=== PATIENT | female | born 1995 | race Caucasian/White ===

== ENCOUNTER 2025-01-29 10:29 | Outpatient (CLI) | payer OTHER, SELFPAY ==
--- OUTSIDE RECORDS SUMMARY | 2025-01-29 10:53 | XMS_ITS | Clinical Summary ---
[facility] Address [address] [place] [id number] Care Team Providers Care Acds Block 1 Operator Name Role Phone No, Physician Primary Care Provider [phone] Allergies No known active allergies Medications hydrocortisone-pra moxine (PRAMCORT) 1-1 % rectal creamIndications:P ruritus Ani Insert into the rectum 4 (four) times a day 30 g 2 1 Active vit-iron fum-folic ac 27 mg iron- 0.8 mg tabletIndications: Vitamin Deficiency Prevention Take 1 tablet by mouth daily 30 tablet 11 1 Active norethindrone (MICRONOR) 0.35 mg tabletIndications: Contraception Take 1 tablet (0.35 mg total) by mouth daily 82 tablet 3 1 Active Active Problems Problem Noted Date Diagnosed Date Infection of perineal wound following delivery 0 01/15/2021 Normal course 01/07/2021 Overview (01/08/2021): PPD #1 01/07/21 Pt is doing well VSS, afebrile H/h 8.5/25.8 -- Pt is ambulating, tolerating general diet and pain controlled. Baby in the room with mom. Anticipate discharge tomorrow. 01/08/2021: Ambulating, voiding, tolerating regular diet, pain controlled well Baby blood type O negative - RhoGAM not indicated Stable for discharge Routine discharge precautions Prescriptions for ferrous sulfate and vitamins sent electronically Other hemorrhoids 01/07/2021 Overview (01/08/2021): Pramcort ordered today for hemorrhoids 01/08/2021: Patient continues to have discomfort. Offered to have an inpatient consult with General surgery, which the patient declines. She will continue to use medications as an outpatient and call us if her symptoms do not resolve to her satisfaction. Resolved Problems Problem Noted Date Diagnosed Date Resolved Date LGA (large for gestational a ge) fetus affecting management of mother, third trimester, not applicable or unspecified fetus 01/05/2021 01/08/2021 Overview (01/08/2021): 01/05/21 US (12/12): at 33w2d, EFW 2651g, 93%, AC 95% GCT 142, passed 3hr Delivery is planned for 36wks so size should not affect delivery planning Encounter for planned induction of labor 01/05/2021 01/08/2021 Overview (01/08/2021): at 36w5d presented for planned induction of labor due to worsening cholestasis SVE on admission 0/0/-3 S/p ANCS 01/02- Cervidil placed 01/04 at 2130 FHT reactive and reassuring 01/05/21, 2000 S/p cervidil x1, buccal cytotec 25mcg x2 SVE now 3/70/-2, head well applied Ctx on toco q2-4 min FHT reactive and reassuring Will proceed with induction of labor with pitocin 01/06/21 SROM with clear fluid at 5:30am Cvx 2-3/70/-3 at that time. Epidural in place FWB reassuring Continue Pitocin titration Cholestasis of in third trimester 01/04/2021 01/08/2021 Overview (01/08/2021): 01/05/21 BA (4/9) 11, diagnostic of cholestasis Rpt BA (5/5) 8 On ursodiol Worsening symptoms reported to Dr. 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 Dyspareunia in female 02/22/20202020 Immunizations Immunization Administration Dates Next Due MMR 01/08/2021(Deferred: Contraindic ation) Pfizer SARS-CoV-2 Monovalent Vaccination (12+ Yrs) PURPLE 03/10/2021,02/10/2021 Tdap 01/08/2021(Deferred: Other - received previously- 11/05/20),11/05/2020 Surgical History Surgery Date Site/Laterality Comments DIAGNOSTIC LAPAROSCOPY 04/16/2020 lap excision & ablation of endometriosis Medical History Medical History Date Comments Endometriosis 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 Dyspareunia in female 02/22/2020 Family History Medical History Relation Name Comments No Known Problems Father No Known Problems Mother Breast cancer Neg Hx Ovarian cancer Neg Hx Uterine cancer Neg Hx Relation Name Status Comments Father Alive Mother Alive Social History Tobacco Use Types Packs/Day Years Used Date Smoking Tobacco: Never Smokeless Tobacco: Never Alcohol Use Standard Drinks/Week Comments Not Currently 0 (1 standard drink = 0.6 oz pur e alcohol) AUDIT-C Answer Date Recorded Frequency of Alcohol Consumption Never 03/15/2019 Average Number of Drinks Not on file 019 Frequency of Binge Drinking Not on file 02/16 [place] Depression Scale Answer Date Recorded [place] Depression Scale Total 0 02/19/2021 The thought of harming myself has occurred to me . Never 02/19/2021 Personal Safety Answer Date Recorded Getting School Help Needed Not on file 09/17 Comments No Sex and Gender Information Value Date Recorded Sex Assigned at Not on file Legal Sex Female 3:32 PM CDT Gender Identity Not on file Sexual Orientation Not on file Obstetrics History Para Term AB IAB SAB Ectopic Multiple Livin g Live Births 1 1 0 1 0 0 0 0 0 1 1 Date Outcome GA Total Labor Labor/2nd/3rd Weight Sex Type Anes PTL Nena A1 A5 Name Clin 021 36w 6d 7h 20m 6h 01m/1h 07m/0h 12m 2.99 kg (6 lb 9.5 oz) F Vag-S pont Epidur al N Livin g 8 9 PULLI AM,GI RLMAR Erica Cabrera MD Delivery [facility]) Last Filed Vital Signs Vital Sign Reading Time Taken Comments Blood Pressure 124/80 02/19/2021 11:17 AM CDT Pulse 73 01/08/2021 6:19 AM CDT Temperature 36.9 C (98.5 F) 01/08/2021 6:19 AM CDT Respiratory Rate 18 01/08/2021 6:19 AM CDT Oxygen Saturation 100% 01/08/2021 6:19 AM CDT Inhaled Oxygen Concentration - - Weight 66.2 kg (146 lb) 02/19/2021 11:17 AM CDT Height 157.5 cm (5' 2.01) 02/19/2021 11:17 AM C DT Body Mass Index 26.7 02/19/2021 11:17 AM CDT Plan of Treatment Health Maintenance Due Date Last Done Comments Cervical Cancer Screening 1997 Varicella Vaccines (1 of 2 - 13+ 2-dose series) 2010 Hepatitis B Screening 2015 Regular Well Visit/Exam 18-64 06/23/2021, 03/15/2019 Depression Screening 02/19/2022 02/19/2021 Covid-19 Vaccine (3 - 2023-2 5 season) 2024 03/10/2021, 02/10/2021 Influenza Vaccine (Season Ended) 2025 DTaP/Tdap/Td Vaccine (2 - Td or Tdap) 11/05/2030 11/05/2020 Hepatitis C Screening Completed 06/23/2020 HPV Vaccines Aged Out No longer eligi ble based on patient's age to complete this topic Pneumococcal vaccine <65 Aged Out No longer eligible based on patient's age to complete this topic Procedures Procedure Name Priority Date/Time Associated Diagnosis Comments HEPATITIS C ANTIBODY Routine 06/23/2020 2:58 PM DIRECTOR OF MUSIC THERAPY Positive test from Last 3 Months or Most Recently Relevant to Health Maintenance Results * Hepatitis C antibody (06/23/2020 2:58 PM DIRECTOR OF MUSIC THERAPY) Hep C Ab NONREACT NONREACTIVE [facility] Comment: Siemens CentaurXP using ANDREW (chemiluminescent immunoassay) technology. NONREACTIVE: Antibodies to Hepatitis C not detected. This does not exclude early acute Hepatitis C infection, possibility of exposure to Hepatitis C, antibodies below detection limit, or to lack of antibody reactivity to the antigen used in this assay. EQUIVOCAL: Antibodies to Hepatitis C may or may not be present. Sample to be confirmed by real-time PCR method. REACTIVE: Antibodies to Hepatitis C detected.Sample to be confirmed by real-time PCR method. Blood specimen (specimen) 06/23/2020 2:58 PM DIRECTOR OF MUSIC THERAPY 06/23/2020 3:54 PM DIRECTOR OF MUSIC THERAPY Narrative Resulting Agency Comment CLI Edilberto Vences MD LAB MICROBIOLOGY - GENERAL ORDERABLES Final Result [facility] [address] [place] [address], [facility] [phone] from Last 3 Months or Most Recently Relevant to Health Maintenance Insurance [employer] Advance Directives For more information, please contact: [phone] * Full Code (Latest Code Status on File) Date Activated Date Inactivated Comments 01/06/2021 5:34 PM 01/08/2021 8:55 PM * Full Code Date Activated Date Inactivated Comments 01/04/2021 8:09 PM 01/06/2021 5:34 PM Full CPR in case of cardiopulmonary arrest Care Teams Acds Block 1 Operator Relationship Specialty Start Date End Date No, Physician PCP - General 01/30/19
--- OUTSIDE RECORDS SUMMARY | 2025-01-29 10:53 | XMS_ITS | Data Portability ---
Author Organization [employer] , [facility]_Jose Address [address] [place] [address] Assessment No assessment recorded. Plan of Treatment Reminders Order Date Submit Date Provider Last Modified By Organization Details Last Modified Time Details Appointments None recorded. Lab streptococc us group B, culture, unspecified specimen 2023 024 [email or web address] [id number] [facility], [address] [place], [address], 4 12:17:18 streptococc us group B, culture, unspecified specimen 2023 024 [email or web address] [employer] [facility], [address] [place], [address], 4 13:26:14 Referral None recorded. Procedures None recorded. Surgeries None recorded. Imaging US, obstetric, biophysical profile 2023 024 [facility], [address] [place], [address], 4 12:27:35 US, obstetric, biophysical profile 2023 024 [email or web address] [facility], [address] [place], [address], 4 18:49:20 Medication Orders albuterol sulfate HFA 90 mcg/actuati on aerosol inhaler 2023 024 [email or web address] [facility] #[id number], [address] [place] [address], [id number], 4 10:53:15 Flovent HFA 110 mcg/actuati on aerosol inhaler 2023 024 [facility] #[id number], [address] [place] [address], [id number], 4 10:53:36 Colace 100 mg capsule 2023 024 [facility] #[id number], [address] [place] [address], [id number], 4 10:53:41 lidocaine 5 % topical ointment 2023 024 [facility] [employer] [facility] #[id number], [address] [place] [address], [id number], 4 10:53:42 Proctosol HC 2.5 % topical cream perineal applicator [address] [employer] [facility] #[id number], [address] [place] [address], [id number], 4 10:53:27 Medrol (Rito) 4 mg tablets in a dose pack [address] [employer] [facility] #[id number], [address] [place] [address], [id number], 4 10:53:06 Patient TargetsNo targets recorded. 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 Results Created Date Observation Date Name Description Value Unit Range Abnormal Flag Note LastModifiedBy Organization Detail LastModifiedTime 06/21/20 23 06/21/2023 BILE ACIDS , PREGN RACHID cholic acid 3.1 umol/ L < or = 2.8 high Not Available [employer] [place] [address] [place], [address], 06/21/2023 19:21:49 06/21/20 23 06/21/2023 BILE ACIDS , PREGN RACHID deoxycholic acid 1.1 umol/ L < or = 2.3 Not Available [employer] [place] [address] [place], [address], 06/21/2023 19:21:49 06/21/20 23 06/21/2023 BILE ACIDS , PREGN RACHID chenodeoxych olic acid 1.8 umol/ L < or = 3.9 Not Available [employer] [place] [address] [place], [address], 06/21/2023 19:21:49 06/21/20 23 06/21/2023 BILE ACIDS , PREGN RACHID total bile acids 5.9 umol/ L < or = 8.3 This test was devadriano [place] and its sophy tical perfo rmanc e hansel cteri stics have been deter mined by [facility]. It has not been clear ed or appro leila by FDA. This assay has been valid ated pursu ant to the CLIA regul ation s and is used for clini caro purpo ses. NO COLLE CTION DATE RECEI LEILA. WE HAVE USED THE DATE THE SPECI MEN WAS RECEI LEILA BY THIS LABOR ATORY THE COLLE CTION DATE. IF THIS IS INCOR RECT, PLEAS E CONTA CT CLIEN T SERVI RONY. PHONE NUMBE R: [phone] Not Available [employer] [place] [address] [place], [address], 06/21/2023 19:21:49 06/30/20 23 06/30/2023 BILE ACIDS , TOTAL bile acids, total 6 umol/ L 0-10 INTER PRETI VE INFOR MATIO N: Bile Acids , Total Refer ence Inter isaak appli es to fasti ng speci mens. NO COLLE CTION DATE RECEI LEILA. WE HAVE USED THE DATE THE SPECI MEN WAS RECEI LEILA BY THIS LABOR ATORY THE COLLE CTION DATE. IF THIS IS INCOR RECT, PLEAS E CONTA CT CLIEN T SERVI RONY. PHONE NUMBE R: [phone] Not Available [employer] [place] [address] [place], [address], 06/30/2023 22:25:48 07/08/20 23 07/08/2023 BILE ACIDS , TOTAL bile acids, total 6 umol/ L 0-10 INTER PRETI VE INFOR MATIO N: Bile Acids , Total Refer ence Inter isaak appli es to fasti ng speci mens. NO COLLE CTION DATE RECEI LEILA. WE HAVE USED THE DATE THE SPECI MEN WAS RECEI LEILA BY THIS LABOR ATORY THE COLLE CTION DATE. IF THIS IS INCOR RECT, PLEAS E CONTA CT CLIEN T SERVI RONY. PHONE NUMBE R: [phone] Not Available [employer] [place] [address] [place], [address], 07/08/2023 21:21:48 06/27/20 23 06/28/2023 COMPR EHENS NEELAM METAB OLIC PANEL sodium 137 mmol/ L 136 - 145 normal Not Available [address], [address], 06/29/2023 16:19:25 06/27/20 23 06/28/2023 COMPR EHENS NEELAM METAB OLIC PANEL potassium 4.2 mmol/ L 3.5 - 5.1 normal Not Available [address], [address], 06/29/2023 16:19:25 06/27/20 23 06/28/2023 COMPR EHENS NEELAM METAB OLIC PANEL chloride 102 mmol/ L 98 - 107 normal Not Available [address], [address], 06/29/2023 16:19:25 06/27/20 23 06/28/2023 COMPR EHENS NEELAM METAB OLIC PANEL glucose 91 mg/dL 74 - 106 normal Not Available [address], [address], 06/29/2023 16:19:25 06/27/20 23 06/28/2023 COMPR EHENS NEELAM METAB OLIC PANEL carbon dioxide 24 mmol/ L 20 - 32 normal Not Available [address], [address], 06/29/2023 16:19:25 06/27/20 23 06/28/2023 COMPR EHENS NEELAM METAB OLIC PANEL calcium 8.7 mg/dL 8.5 - 10.1 normal Not Available [address], [address], 06/29/2023 16:19:25 06/27/20 23 06/28/2023 COMPR EHENS NEELAM METAB OLIC PANEL creatinine 0.61 mg/dL 0.60 - 1.00 normal Not Available [address], [address], 06/29/2023 16:19:25 06/27/20 23 06/28/2023 COMPR EHENS NEELAM METAB OLIC PANEL eGFR 126 mL/mi n/1.7 3m2 >60 normal The eGFR is based on the CKD-E PI 2020 equat ion. To calcu late the new eGFR from a previ ous Creat inine or Cysta tin C resul t, go to https :[email or web address] [email or web address] [email or web address]/pr william singleton s/[email or web address] qi/gf r_cal culat or Not Available [address], [address], 06/29/2023 16:19:25 06/27/20 23 06/28/2023 COMPR EHENS NEELMA METAB OLIC PANEL AST 20 U/L 32 - 40 low Not Available [address], [address], 06/29/2023 16:19:25 06/27/20 23 06/28/2023 COMPR EHENS NEELAM METAB OLIC PANEL ALT 20 U/L 14 - 59 normal Not Available [address], [address], 06/29/2023 16:19:25 06/27/20 23 06/28/2023 COMPR EHENS NEELAM METAB OLIC PANEL alk phos 103 U/L 46 - 116 normal Not Available [address], [address], 06/29/2023 16:19:25 06/27/20 23 06/28/2023 COMPR EHENS NEELAM METAB OLIC PANEL albumin 2.4 g/dL 3.4 - 5.0 low Not Available [address], [address], 06/29/2023 16:19:25 06/27/20 23 06/28/2023 COMPR EHENS NEELAM METAB OLIC PANEL protein, total 6.3 g/dL 6.4 - 8.2 low Not Available [address], [address], 06/29/2023 16:19:25 06/27/20 23 06/28/2023 COMPR EHENS NEELAM METAB OLIC PANEL bilirubin, total 0.7 mg/dL 0.2 - 1.0 normal Not Available [address], [address], 06/29/2023 16:19:25 06/27/20 23 06/28/2023 COMPR EHENS NEELAM METAB OLIC PANEL urea nitrogen (BUN) 7 mg/dL 6 - 31 normal Not Available [facility] [address] [place], [address], 06/29/2023 16:19:25 07/15/20 23 07/21/2023 BILE ACIDS , PREGN RACHID cholic acid 1.0 umol/ L < or = 2.8 Not Available [employer] [place] [address] [place], [address], 07/21/2023 17:45:54 07/15/20 23 07/21/2023 BILE ACIDS , PREGN RACHID deoxycholic acid <0.5 umol/ L < or = 2.3 Not Available [employer] [place] [address] [place], [address], 07/21/2023 17:45:54 07/15/20 23 07/21/2023 BILE ACIDS , PREGN RACHID chenodeoxych olic acid <0.5 umol/ L < or = 3.9 Not Available [employer] [place] [address] [place], [address], 07/21/2023 17:45:54 07/15/20 23 07/21/2023 BILE ACIDS , PREGN RACHID total bile acids <1.5 umol/ L < or = 8.3 This test was devel oped and its sophy tical perfo rmanc e hansel cteri stics have been deter mined by [employer] [facility]. It has not been clear ed or appro leila by FDA. This assay has been valid ated pursu ant to the CLIA regul ation s and is used for clini caro purpo ses. Not Available [employer] [place] [address] [place], [address], 07/21/2023 17:45:54 07/20/19 24 07/23/2023 STREP TOCOC CUS, GROUP B CULTU RE streptococcu s, group B culture SEE NOTE STREP TOCOC CUS, GROUP B CULTU RE Micro Numbe r: [id number] Test Statu s: Final Speci men Sourc e: Vagin al/an orect al Speci men Quali ty: Adequ ate Resul t: No group B Strep tococ cus isola stefania Note per CDC guide lines optim al recov saba is achie leila by swabb ing both the lower vagin a and rectu m (thro ugh the anal sphin cter) . Not Available [employer] [facility] [address] [address] , [place], [address], 07/23/2023 13:26:14 07/29/19 24 07/29/2023 CBC WITH DIFF WBC 9.4 x10'3 /uL 4.5-11 .0 Not Available [facility] (Lab) [place], [address], 07/29/2023 04:11:41 07/29/19 24 07/29/2023 CBC WITH DIFF RBC 3.90 x10'6 /uL 4.20-5 .40 low Not Available [facility] (Lab) [place], [address], 07/29/2023 04:11:41 07/29/19 24 07/29/2023 CBC WITH DIFF hemoglobin 10.5 g/dL 12.0-1 6.0 low Not Available [facility] (Lab) [place], [address], 07/29/2023 04:11:41 07/29/1907/29/2023 CBC WITH DIFF hematocrit 32.3 % 38.0-4 8.0 low Not Available [facility] (Lab) [place], [address], 07/29/2023 04:11:41 07/29/19 24 07/29/2023 CBC WITH DIFF MCV 82.8 fL 81.0-9 9.0 Not Available [facility] (Lab) [place], [address], 07/29/2023 04:11:41 07/29/19 24 07/29/2023 CBC WITH DIFF MCH 26.9 pg 27.0-3 1.0 low Not Available [facility] (Lab) [address], [place], [address], 07/29/2023 04:11:41 07/29/19 24 07/29/2023 CBC WITH DIFF MCHC 32.5 g/dL 32.0-3 6.0 Not Available [facility] (Lab) [address] [facility], [place], [address], 07/29/2023 04:11:41 07/29/19 24 07/29/2023 CBC WITH DIFF RDW 14.5 % 11.5-1 4.5 Not Available [facility] (Lab) [address], [place], [address], 07/29/2023 04:11:41 07/29/19 24 07/29/2023 CBC WITH DIFF platelet count 275 x10'3 /uL 130-40 0 Not Available [facility] (Lab) [address], [place], [address], 07/29/2023 04:11:41 07/29/19 24 07/29/2023 CBC WITH DIFF MPV 11.2 fL 9.3-12 .2 Not Available [facility] (Lab) [address], [place], [address], 07/29/2023 04:11:41 07/29/19 24 07/29/2023 CBC WITH DIFF diff type AUTOMA STEFANIA DIFFER ENTIAL Not Available [facility] (Lab) [address], [place], [address], 07/29/2023 04:11:41 07/29/19 24 07/29/2023 CBC WITH DIFF neutrophils 62.8 % Not Available [facility] (Lab) [address], [place], [address], 07/29/2023 04:11:41 07/29/19 24 07/29/2023 CBC WITH DIFF lymphocytes 26.5 % Not Available [facility] (Lab) [address], [place], [address], 07/29/2023 04:11:41 07/29/19 24 07/29/2023 CBC WITH DIFF monocytes 7.6 % Not Available [facility] (Lab) [address], [place], [address], 07/29/2023 04:11:41 07/29/19 24 07/29/2023 CBC WITH DIFF eosinophils 2.2 % Not Available [facility] (Lab) [address], [place], [address], 07/29/2023 04:11:41 07/29/19 24 07/29/2023 CBC WITH DIFF basophils 0.4 % Not Available [facility] (Lab) [address], [place], [address], 07/29/2023 04:11:41 07/29/19 24 07/29/2023 CBC WITH DIFF immature granulocytes 0.5 % Not Available [facility] (Lab) [address], [place], [address], 07/29/2023 04:11:41 07/29/19 24 07/29/2023 CBC WITH DIFF abs. neutrophils 5.88 x10'3 /uL 1.80-7 .70 Not Available [facility] (Lab) [address], [place], [address], 07/29/2023 04:11:41 07/29/19 24 07/29/2023 CBC WITH DIFF abs. lymphocytes 2.49 x10'3 /uL 1.00-4 .80 Not Available [facility] (Lab) [place], [address], 07/29/2023 04:11:41 07/29/19 24 07/29/2023 CBC WITH DIFF abs. monocytes 0.71 x10'3 /uL 0.24-0 .86 Not Available [facility] (Lab) [place], [address], 07/29/2023 04:11:41 07/29/19 24 07/29/2023 CBC WITH DIFF abs. eosinophils 0.21 x10'3 /uL 0.04-0 .36 Not Available [facility] (Lab) [place], [address], 07/29/2023 04:11:41 07/29/19 24 07/29/2023 CBC WITH DIFF abs. basophils 0.04 x10'3 /uL 0.01-0 .08 Not Available [facility] (Lab) [place], [address], 07/29/2023 04:11:41 07/29/19 24 07/29/2023 CBC WITH DIFF abs. immature grans 0.05 x10'3 /uL 0.00-0 .49 Not Available [facility] (Lab) [place], [address], 07/29/2023 04:11:41 07/29/19 24 07/29/2023 COMPR EHENS NEELAM METAB OLIC PANEL glucose 120 mg/dL 70-99 high Not Available [facility] (Lab) [address], [address], 07/29/2023 04:37:23 07/29/19 24 07/29/2023 COMPR EHENS NEELAM METAB OLIC PANEL BUN 7 mg/dL 7-18 Not Available [facility] (Lab) [address] [place], [address], 07/29/2023 04:37:23 07/29/19 24 07/29/2023 COMPR EHENS NEELAM METAB OLIC PANEL creatinine 0.74 mg/dL 0.55-1 .02 Not Available [facility] (Lab) [address] [place], [address], 07/29/2023 04:37:23 07/29/19 24 07/29/2023 COMPR EHENS NEELAM METAB OLIC PANEL sodium 137 mmol/ L 136-14 5 Not Available [facility] (Lab) [address] [place], [address], 07/29/2023 04:37:23 07/29/19 24 07/29/2023 COMPR EHENS NEELAM METAB OLIC PANEL potassium 3.8 mmol/ L 3.5-5. 1 Not Available [facility] (Lab) [place], [address], 07/29/2023 04:37:23 07/29/19 24 07/29/2023 COMPR EHENS NEELAM METAB OLIC PANEL chloride 108 mmol/ L 100-10 8 Not Available [facility] (Lab) [address] [place], [address], 07/29/2023 04:37:23 07/29/19 24 07/29/2023 COMPR EHENS NEELAM METAB OLIC PANEL total CO2 22.2 mmol/ L 21-32 Not Available [facility] (Lab) [address] [facility], [place], [address], 07/29/2023 04:37:23 07/29/19 24 07/29/2023 COMPR EHENS NEELAM METAB OLIC PANEL calcium 8.6 mg/dL 8.5-10 .1 Not Available [facility] (Lab) [address] [facility], [place], [address], 07/29/2023 04:37:23 07/29/19 24 07/29/2023 COMPR EHENS NEELAM METAB OLIC PANEL total bilirubin 1.0 mg/dL 0.2-1. 2 THIS ASSAY IS NOT RECOM CIELO D FOR PATIE NTS UNDER GOING TREAT MENT WITH ELTRO MBOPA G DUE TO THE POTEN TIAL FOR FALSE LY ELEVA STEFANIA RESUL TS. Not Available [facility] (Lab) [address] [facility], [place], [address], 07/29/2023 04:37:23 07/29/19 24 07/29/2023 COMPR EHENS NEELAM METAB OLIC PANEL total protein 6.6 g/dL 6.4-8. 2 Not Available [facility] (Lab) [address] [facility], [place], [address], 07/29/2023 04:37:23 07/29/19 24 07/29/2023 COMPR EHENS NEELAM METAB OLIC PANEL albumin 2.3 g/dL 3.4-5. 0 low Not Available [facility] (Lab) [address] [facility], [place], [address], 07/29/2023 04:37:23 07/29/19 24 07/29/2023 COMPR EHENS NEELAM METAB OLIC PANEL AST 38 U/L 15-37 high Not Available [facility] (Lab) [address] [facility], [place], [address], 07/29/2023 04:37:23 07/29/19 24 07/29/2023 COMPR EHENS NEELAM METAB OLIC PANEL ALT 61 U/L 14-55 high Not Available [facility] (Lab) [place], [address], 07/29/2023 04:37:23 07/29/19 24 07/29/2023 COMPR EHENS NEELAM METAB OLIC PANEL alk phosphatase 138 U/L 50-136 high Not Available [facility] (Lab) [place], [address], 07/29/2023 04:37:23 07/29/19 24 07/29/2023 COMPR EHENS NEELAM METAB OLIC PANEL anion gap 6.8 mmol/ L 5-15 Not Available [facility] (Lab) [place], [address], 07/29/2023 04:37:23 07/29/19 24 07/29/2023 COMPR EHENS NEELAM METAB OLIC PANEL BUN creatinine ratio 9.5 6-26 Not Available [facility] (Lab) [place], [address], 07/29/2023 04:37:23 07/29/19 24 07/29/2023 COMPR EHENS NEELAM METAB OLIC PANEL A:g ratio 0.5 ratio 1.0-2. 0 low Not Available [facility] (Lab) [place], [address], 07/29/2023 04:37:23 07/29/19 24 07/29/2023 COMPR EHENS NEELAM METAB OLIC PANEL est GFR >90 mL/mi n/1.7 3_M2 >90 NOTE: eGFR is not calcu lated for patie nts <18 years of age. This is an estim ated GFR calcu latio n using the new CKD EPI creat inine equat ion witho ut race and so does not requi re a corre ction facto r for race. This estim ated GFR shoul d not be used for calcu latin g drug doses . Not Available [facility] (Lab) [address], [place], [address], 07/29/2023 04:37:23 07/29/19 24 07/29/2023 TYPE AND SCREE N ABO/Rh(D) A NEGATI VE Not Available [facility] (Lab) [address], [place], [address], 07/29/2023 06:41:10 07/29/19 24 07/29/2023 TYPE AND SCREE N antibody screen POSITI VE Not Available [facility] (Lab) [address], [place], [address], 07/29/2023 06:41:10 07/29/19 24 07/29/2023 TYPE AND SCREE N xm expiration 2023,2 359 Not Available [facility] (Lab) [address], [place], [address], 07/29/2023 06:41:10 07/29/19 24 07/29/2023 TYPE AND SCREE N antibody id NO ALLOAN TIBODI ES DETECT ED Not Available [facility] (Lab) [address], [place], [address], 07/29/2023 06:41:10 07/29/19 24 07/29/2023 TYPE AND SCREE N comment ANTI- D MOST LIKEL Y DUE TO RECEN T RH IMMUN E GLOBU PATRICIA INJEC TION. RHIG GIVEN ON 06 07 2023. Not Available [facility] (Lab) [address], [place], [address], 07/29/2023 06:41:10 07/29/19 24 07/29/2023 UA REFLE X TO CULTU RE specimen type URINE CLEAN CATCH Not Available [facility] (Lab) [address], [place], [address], 07/29/2023 13:37:24 07/29/19 24 07/29/2023 UA REFLE X TO CULTU RE color YELLOW Not Available [facility] (Lab) [place], [address], 07/29/2023 13:37:24 07/29/19 24 07/29/2023 UA REFLE X TO CULTU RE clarity TURBID Not Available [facility] (Lab) [address] [facility], [place], [address], 07/29/2023 13:37:24 07/29/19 24 07/29/2023 UA REFLE X TO CULTU RE specific gravity 1.025 1.001- 1.030 Not Available [facility] (Lab) [address] [facility], [place], [address], 07/29/2023 13:37:24 07/29/19 24 07/29/2023 UA REFLE X TO CULTU RE pH, urine 6.5 5.0-9. 0 Not Available [facility] (Lab) [place], [address], 07/29/2023 13:37:24 07/29/19 24 07/29/2023 UA REFLE X TO CULTU RE leukocytes NEGATI VE neg Not Available [facility] (Lab) [place], [address], 07/29/2023 13:37:24 07/29/19 24 07/29/2023 UA REFLE X TO CULTU RE nitrite NEGATI VE neg Not Available [facility] (Lab) [place], [address], 07/29/2023 13:37:24 07/29/19 24 07/29/2023 UA REFLE X TO CULTU RE protein 50 mg/dL <30 high Not Available [facility] (Lab) [place], [address], 07/29/2023 13:37:24 07/29/19 24 07/29/2023 UA REFLE X TO CULTU RE glucose NORMAL mg/dL norm Not Available [facility] (Lab) [place], [address], 07/29/2023 13:37:24 07/29/19 24 07/29/2023 UA REFLE X TO CULTU RE ketone NEGATI VE mg/dL neg Not Available [facility] (Lab) [place], [address], 07/29/2023 13:37:24 07/29/19 24 07/29/2023 UA REFLE X TO CULTU RE urobilinogen 4.0 mg/dL norm abnormal Not Available [facility] (Lab) [place], [address], 07/29/2023 13:37:24 07/29/19 24 07/29/2023 UA REFLE X TO CULTU RE bilirubin NEGATI VE mg/dL neg Not Available [facility] (Lab) [place], [address], 07/29/2023 13:37:24 07/29/19 24 07/29/2023 UA REFLE X TO CULTU RE blood NEGATI VE neg Not Available [facility] (Lab) [place], [address], 07/29/2023 13:37:24 07/29/19 24 07/29/2023 UA REFLE X TO CULTU RE culture indicated CULTUR E IS NOT INDICA STEFANIA Not Available [facility] (Lab) [place], [address], 07/29/2023 13:37:24 07/29/19 24 07/29/2023 UA REFLE X TO CULTU RE mucous MANY /lpf Not Available [facility] (Lab) [place], [address], 07/29/2023 13:37:24 07/29/19 24 07/29/2023 UA REFLE X TO CULTU RE WBC 3 /hpf <6 Not Available [facility] (Lab) [place], [address], 07/29/2023 13:37:24 07/29/19 24 07/29/2023 UA REFLE X TO CULTU RE RBC 1 /hpf <6 Not Available [facility] (Lab) [place], [address], 07/29/2023 13:37:24 07/29/19 24 07/29/2023 UA REFLE X TO CULTU RE calcium oxalate crystal MODERA TE /hpf Not Available [facility] (Lab) [place], [address], 07/29/2023 13:37:24 07/29/19 24 07/29/2023 UA REFLE X TO CULTU RE squamous epithelial RARE /hpf Not Available [facility] (Lab) [address] [facility], [place], [address], 07/29/2023 13:37:24 07/29/19 24 07/29/2023 DRUGS OF ABUSE PANEL , URINE amphetamines , urine NEGATI VE neg Not Available [facility] (Lab) [address] [facility], [place], [address], 07/29/2023 13:45:23 07/29/19 24 07/29/2023 DRUGS OF ABUSE PANEL , URINE barbituates, urine NEGATI VE neg Not Available [facility] [address] [facility], [place], [address], 07/29/2023 13:45:23 07/29/19 24 07/29/2023 DRUGS OF ABUSE PANEL , URINE benzodiazapi doreen, urine NEGATI VE neg Not Available [facility] (Lab) [address] [facility], [place], [address], 07/29/2023 13:45:23 07/29/19 24 07/29/2023 DRUGS OF ABUSE PANEL , URINE cannabinoids /THC, urine NEGATI VE neg Not Available [facility] (Lab) [place], [address], 07/29/2023 13:45:23 07/29/19 24 07/29/2023 DRUGS OF ABUSE PANEL , URINE cocaine, urine NEGATI VE neg Not Available [facility] (Lab[facility] [place], [address], 07/29/2023 13:45:23 07/29/19 24 07/29/2023 DRUGS OF ABUSE PANEL , URINE methadone, urine NEGATI VE neg Not Available [facility] [address] [place], [address], 07/29/2023 13:45:23 07/29/19 24 07/29/2023 DRUGS OF ABUSE PANEL , URINE opiates, urine NEGATI VE neg Not Available [facility] (Lab) [place], [address], 07/29/2023 13:45:23 07/29/19 24 07/29/2023 DRUGS OF ABUSE PANEL , URINE phencyclidin es, urine NEGATI VE neg NOTE: RESUL TS OF THIS DRUG SCREE N SHOUL D BE USED FOR MEDIC AL PURPO SES ONLY AND NOT FOR LEGAL OR EMPLO YMENT PURPO SES. POSIT NEELAM RESUL TS ARE NOT CONFI RMED. MEDIC ATION S CONTA INING EPHED RINE MAY CAUSE FALSE POSIT NEELAM AMPHE TAMIN E CALL [phone], LAB, TO REQUE ST CONFI RMATI ON TESTI NG. IF CREAT ININE IS <40 mg/dL . RECOL LECTI ON IS SUGTHOM STED. AMPHE TAMIN E- 500 NG/ML ALLIE TURAT E- 200 NG/ML BENZO DIAZE PINES - 200 NG/ML THC- 50 NG/ML COCAI NE- 150 NG/ML METHA DONE- 300 NG/ML OPIAT E- 300 MG/ML PCP- 25 NG/ML Not Available [facility] (Lab) [place], [address], 07/29/2023 13:45:23 07/29/19 24 07/29/2023 DRUGS OF ABUSE PANEL , URINE creatinine, urine 227.0 mg/dL 28-217 high Not Available [facility] (Lab) [place], [address], 07/29/2023 13:45:23 07/30/19 24 07/30/2023 SCREE N scr patient NEGATI VE Not Available [facility] (Lab) [place], [address], 07/30/2023 22:22:20 07/30/19 24 07/30/2023 SCREE N comment NEGAT NEELAM SCREE N INDIC ATES NO FURTH ER TESTI NG IS NECES JAZMIN. ONE VIAL OF RHOGA M MAY BE GIVEN IF MOTHE R IS RH NEGAT NEELAM AND BABY IS RH POSIT NEELAM. Not Available [facility] (Lab) One [facility], [place], [address], 07/30/2023 22:22:20 06/24/20 US, obste tric, bioph ysica l profi le No observ ation record ed. [email or web address] [facility] [address] [place], [address], 06/24/2023 12:41:44 06/29/20 US, obste tric, bioph ysica l profi le No observ ation record ed. [email or web address] [facility] [address] [place], [address], 06/29/2023 16:09:15 07/01/20 23 06/27/2023 US, obste tric, follo w-up No observ ation record ed. Milly [address], [place], [address], 07/03/2023 15:50:28 07/08/20 US, obste tric, bioph ysica l profi le No observ ation record ed. [email or web address] [facility] [address] [place], [address], 07/08/2023 10:10:41 07/08/20 23 07/08/2023 US, obste tric, bioph ysica l profi le No observ ation record ed. [email or web address] [address], [place], [address], 07/11/2023 14:54:02 07/12/20 23 07/12/2023 US, obste tric, bioph ysica l profi le No observ ation record ed. [email or web address] [facility] [address], [place], [address], 07/16/2023 01:31:53 07/12/20 US, obste tric, bioph ysica l profi le No observ ation record ed. [email or web address] [facility] [address], [place], [address], 07/12/2023 17:57:55 07/15/20 US, obste tric, bioph ysica l profi le No observ ation record ed. [email or web address] [facility] [address] [facility], [place], [address], 07/15/2023 11:30:21 07/15/20 23 07/15/2023 US, obste tric, bioph ysica l profi le No observ ation record ed. [email or web address] Atkins [address] [facility], [place], [address], 07/16/2023 09:37:47 07/20/19 US, obste tric, bioph ysica l profi le No observ ation record ed. [email or web address] [facility] [address] [facility], [place], [address], 07/20/2023 12:41:34 07/22/19 24 US, obste tric, bioph ysica l profi le No observ ation record ed. [email or web address] [facility] [address] [facility], [place], [address], 07/22/2023 12:10:27 07/22/19 24 07/20/2023 US, obste tric, bioph ysica l profi le No observ ation record ed. [email or web address] [address], [place], [address], 07/25/2023 12:03:36 07/23/19 24 07/22/2023 US, obste tric, bioph ysica l profi le No observ ation record ed. [email or web address] [address], [place], [address], 07/25/2023 11:37:17 Result Notes None recorded. Problems Name Problem SNOMED Code Status Onset Date Resolution Date Notes Provider Name and Address Organization Details Recorded Time Pregnanc y 49934632 Completed 202209/12/2023 Yoana monet, [employer] IV 4 17:28:31 High risk pregnanc y 05249572 Completed A-/RI/NR x4. Last Pap: None on file; plan post collecti on. GTT: 128. GBS: Aneuploi dy screenin g: Declined UNITY testing. Anatomy Scan: Complete with MFM on 04/19/23. Yoana monet, [employer] [facility] 4 17:28:29 RhD negative [id number] Completed will need Rhogam at 28 wks. Rhogam ordered given on 05/30/23 . Yoana monet, [employer] [facility] 4 17:28:29 Dark-bro wn colored urine [id number] 4106 Completed Noted in the past 24 hours on 05/30/23 . Pt self admitted ly doesn't drink enough water daily, but has been drinking more since color change. Pt denies dysuria, n/v, back pain, or fever. --> Update 07/15/23 : Urine cx X 2 in pregnanc y contamin ated. Pt denies any back pain, n/v, fever, malaise, dysuria, frequenc y etc. Minimal improvem ent in color of urine. Reviewed 64 oz of water daily minimum and discusse d when to notify HCP/go to ER. Yoana monet, [employer] [facility] 4 17:28:29 Cholesta sis 34076365 Completed had with G1; delivere d at 37 wks. Return sx began with current pregnanc y in 05/2023. On Ursodiol & Hydroxyz ine. Weekly CMP & bile salts being drawn. Last results: 07/08 bile salts 6, CMP 06/27 AST/ALT 20. Plan for twice weekly antenata l testing NST Mon/Tu & BPP Thurs/Fr i. Serial Growth U/S. U/S: 04/19 46%, 06/27 48.8%--> Update 07/15/23 : BPP 02/22. Pt denies refills of medicati ons. Repeat CMP & bile salts ordered. Pt educated on [facility] and when to notify HCP/go to L&D. Planned IOL on 07/28/23. Pt advised to see delivery HCP for remainde r of pregnanc y. Yoana monet, [facility] 4 17:28:29 Problem Notes None recorded. Procedures Surgical History Date Name Laterality Status Provider Name and Address Organization Details Recorded Time 4 Suture/Stapl e removal completed Gillian Mixon [place] [facility] 08/18/2023 10:44:54 4 NST completed Moraima Jason CNM [address] [place] [address], [address], [facility] 07/25/2023 14:44:38 4 NST completed PEDRO LUIS SHEIKH DO [address] [place] [address], [address], [facility] 07/20/2023 12:01:32 3 NST completed Nikki Fonseca MD [address] [place] [address], [address], [facility] 07/12/2023 17:58:52 3 NST completed Rafael Hedrick MD [address] [place] [address], [address], [facility] 07/08/2023 11:44:45 3 NST completed Jenifer Hyatt [facility] [employer] IV 07/05/2023 11:13:33 3 NST completed Rafael Hedrick MD [address] [place] [address], [address], [facility] 06/29/2023 16:19:29 3 NST completed Rafael Bird, [address] [place] [address], [address], [facility] 06/27/2023 12:13:56 3 NST completed Rafael Hedrick MD [address] [place] [address], [address], [facility] 06/24/2023 13:03:43 3 NST completed PEDRO LUIS SHEIKH, [address] [place] [address], [address], [facility] [employer] [facility] 06/20/2023 14:39:39 Imaging Results None recorded. Procedure Notes None recorded. Medical Equipment None Reported. Allergies No known drug allergies Medications Name Sig Start Date Stop Date Status Note LastModified by Organization Details LastModified Time Colace 100 mg capsule Take 1 capsule every day by oral route. 08/18 completed Not Available Not Available Not Available hydrocortis one 2.5 % topical cream with perineal applicator APPLY A THIN LAYER TO THE AFFECTED AREA(S) BY TOPICAL ROUTE 2-4 TIMESDAIL Y 08/18 completed Not Available Not Available Not Available ursodiol 300 mg capsule TAKE 1 CAPSULE BY MOUTH TWICE DAILY WITH MEALS 09/12 completed Not Available Not Available Not Available hydroxyzine HCl 25 mg tablet TAKE 1 TABLET 3 TIMES A DAY BY ORAL ROUTE NEEDED. 08/18 completed Not Available Not Available Not Available methylpredn isolone 4 mg tablets in a dose pack FOLLOW PACKAGE DIRECTION S 08/18 completed Not Available Not Available Not Available albuterol sulfate HFA 90 mcg/actuati on aerosol inhaler INHALE 2 PUFFS BY MOUTH EVERY 4 HOURS 08/18 completed Not Available Not Available Not Available metoclopram waleska 10 mg tablet Take 1 tablet 4 times a day by oral route. active Not Available Not Available No t Available escitalopra m 10 mg tablet TAKE 1 TABLET BY MOUTH EVERY DAY 01/12 completed Not Available Not Available Not Available escitalopra m 20 mg tablet TAKE 1 TABLET BY MOUTH EVERY DAY 01/12 completed Not Available Not Available Not Available [facility] 08/06 () 1 mg-20 mcg (21)/75 mg (7) tablet TAKE 1 TABLET BY MOUTH ONCE DAILY CONTINUOU SLY-SKIPP ING [place] PILLS 01/12 completed Not Available Not Available Not Available nitrofurant oin monohydrate /macrocryst als 100 mg capsule TAKE 1 CAPSULE BY MOUTH EVERY 12 HOURS WITH MEALS FOR 7 DAYS 06/27 completed Not Available Not Available Not Available Flovent HFA 110 mcg/actuati on aerosol inhaler Inhale 2 puffs twice a day by inhalatio n route. 08/18 completed Not Available Not Available Not Available + DHA active Not Available Not Available Not Available lidocaine 5 % topical ointment APPLY TO AFFECTED AREA(S) BY TOPICAL ROUTE 1-4 TIMES DAILY NEEDED 08/18 completed Not Available Not Available Not Available [facility] .12/14 () 1.5 mg-30 mcg (21)/75 mg (7) tablet TAKE 1 TABLET BY MOUTH EVERY DAY 01/12 completed Not Available Not Available Not Available Vitals Date Recorded Body weight Provider Name an d Address Organization Details Last Updated DateTime 07/20/2023 98885.515028 g PEDRO LUIS SHEIKH DO [address] [place], [address], [facility] [employer] [facility] 07/20/2023 12:42:57 Date Recorded Body height Body mass index (BMI) Body temperature Systolic And Diastolic Provider Name and Address Organization Details Last Updated DateTime 07/20/2023 157.48 cm 30.5 kg/m2 97.5 [degF] 118/64 mm[Hg] Gillian Mixon [facility] [employer] [facility] 07/20/2023 12:25:46 Date Recorded Body weight Provider Name an d Address Organization Details Last Updated DateTime 07/22/2023 72089.01438 g Yuliya Bailey, [facility] [address] [place], [address], [place] - [facility] 07/22/2023 13:24:32 Date Recorded Body height Body mass index (BMI) Body temperature Systolic And Diastolic Provider Name and Address Organization Details Last Updated DateTime 07/22/2023 157.48 cm 30.4 kg/m2 97.5 [degF] 110/62 mm[Hg] Rosalina Johnson [facility] 07/22/2023 12:45:28 Date Recorded Body height Provider Name an d Address Organization Details Last Updated DateTime 07/25/2023 157.48 cm Miesha Tom [facility] 07/25/2023 13:51:06 Date Recorded Body height Body mass index (BMI) Body weight Body temperature Systolic And Diastolic Provider Name and Address Organization Details Last Updated DateTime 08/18/2023 157.48 cm 26.5 kg/m2 60816.8 9365 g 97.3 [degF] 108/70 mm[Hg] Gillian Mixon [facility] 10:52:47 Date Recorded Body height Body mass index (BMI) Body weight Body temperature Systolic And Diastolic Provider Name and Address Organization Details Last Updated DateTime 09/12/2023 157.48 cm 28.1 kg/m2 99575.7 47849 g 97.6 [degF] 100/70 mm[Hg] Yoana Vaughan [facility] 17:29:25 Social History Question Answer Notes LastModified by Organizat ion Details LastModified Time Tobacco Smoking Status Never Smoker Yoana Vaughan null, [place] - [facility] 01/12/2023 10:13:27 If You Are , What Was Your Level Of Alcohol Consumption Prior To ? None Information not available 01/12/2023 How Many Years Have You Consumed Alcohol? 0 Information not available 01/12/2023 Are You Blind Or Do You Have Difficulty Seeing? No Information not available 01/12/2023 Are You Deaf Or Do You Have Serious Difficulty Hearing? No Information not available 01/12/2023 What Type Of Diet Are You Following? REGULAR Information not available 01/12/2023 What Is The Highest Grade Or Level Of School You Have Completed Or The Highest Degree You Have Received? [id number] Information not available 01/12/2023 How Many Children Do You Have? 1 Information not available 01/12/2023 Are There Any Occupational Health Risks Where You Work? No Information not available 01/12/2023 What Is Your Relationship Status? He Works As [employer] A [employer] Work.....Tena valle Information not available 06/17/2023 Are You Sexually Active? Yes Information not available 01/12/2023 Have You Used IV Drugs? No Information not available 01/12/2023 Sex: Unknown Functional Status Question Answer Note LastModified by Organizat ion Details LastModified Time Do you use any illicit or recreational drugs? No Information not available 01/12/2023 Do you or have you ever used any other forms of tobacco or nicotine? No Information not available 01/12/2023 What is your level of alcohol consumption? None Information not available 01/12/2023 Do you or have you ever used smokeless tobacco? Never used smokeless tobacco Information not available 01/12/2023 Are you currently employed? Yes Information not available 01/12/2023 What is your occupation? [employer] stays at home after 1st Information not available 06/17/2023 Do you or have you ever used e-cigarettes or vape? Never used electronic cigarettes Information not available 01/12/2023 What is your exercise level? None [email or web address] Information not available 06/24/2023 Mental Status None recorded. Family History Relationship Description Onset Age of this Age Resolved Age Notes LastModified by Organization Details LastModified Time Unspecified Relation Malignant tumor of breast Not available 12/17 10:13:49 Medical History Condition Response Other Cancer N High Blood Pressure N Colon Cancer N Cytomegalovirus N Hyperthyroidism N MRSA N Blood Transfusion N Herpes (HSV) N Breast Cancer N Lung Cancer N Depression N Hypothyroidism N Incontinence N Panic Attacks N Neurological Disorder N Deep Vein Thrombosis N Anxiety Disorder N Autoimmune disease N Arthritis N Shingles N Tuberculosis/Positive PPD N Polycystic Ovarian Syndrome N Cervical Cancer N Hematuria N Chlamydia N Varicosities N Stroke N Seasonal allergies N Crohn's Disease N Alzheimer's/Dementia N COPD/Emphysema N Endometriosis N HPV/Genital Warts N IBS (Irritable Bowel Syndrome) N History of Abnormal Pap N High Cholesterol N Liver Disease N Fibromyalgia N Kidney Infection N Ulcer N Kidney Disease N HIV N Gallbladder disease N Sickle Cell Disease/Trait N Von Willebrand disease N ADD/ADHD N Eating Disorder N Anemia N Diabetes Mellitus (non-insulin dependent ) N Ovarian Problems N Multiple Sclerosis N Gonorrhea N Frequent Urinary Tract infections N Osteopenia N Headaches/migraines N GERD (reflux) N Ovarian Cancer N Diabetes (insulin dependent) N Seizures/Epilepsy N Fibroids N Heart Attack N Asthma N Lupus N Endometrial Cancer N Rubella N Blood Clotting Disorder N Bipolar Disorder N Diabetes Mellitus (during ) N Ulcerative Colitis N Hepatitis N Heart Disease N Pulmonary Embolism N RPR N Chicken Pox N Osteoporosis N Gynecological History Statement/Question Response Date of Last Colonoscopy Flow Heavy Frequency of Cycle (Q days) 25 Date of LMP 11/10/2022 Most Recent Bone Density HPV Vaccine Y Duration of Flow (days) 4-5 Most Recent Mammogram Current Control Method None Age at Menarche 14 Obstetrics History GPAL:G 2 P 2 0 0 2 Type Value Full Term 2 Living 2 Total 2 Past Encounters Encounter ID Performer Location Encounter Start Date Encounter Closed Date Diagnosis/Indication Diagnosis SNOMED-CT Code Diagnosis ICD10 Code Diagnosis Note [id number] Rafael Bird DO [facility] [address] [facility] [address] 01/12/2023 09:48:21 01/12/2023 14:09:41 test positive 164224338 Z32.01 9 week viable iup . f/up 4 weeks [id number] Rafael Bird DO [facility] [address] [facility] [place] [address] 02/17/2023 16:00:06 02/17/2023 17:10:08 Routine care 413701264 Z34.01 Z34.81 O09.511 O09.001 [id number] Rafael Bird DO [facility] [address] [facility] [place] [address] 03/17/2023 16:34:35 03/18/2023 14:16:38 Gestation period, 18 weeks 42281847 Z3A.18 Routine an tenatal care 244577460 Z34.01 Z34.81 O09.511 O09.133 [id number] PEDRO LUIS SHEIKH DO [facility] [address] [place] [address] 04/20/2023 16:57:05 04/20/2023 17:50:03 Gestation period, 23 weeks 70507339 Z3A.23 Routine an tenatal care 850880779 Z34.02 IUP @ 23+ wks. No OB complaints . RTO 4 wks, discussed labs/TDaP/ EPDS next visit. [id number] TRACY Zepeda [facility] [address] [place] [address] 05/30/2023 11:23:28 05/30/2023 14:55:19 screening 953520617 Z36.9 Pruritic disorder 715402 002 L29.9 Dark-brown colored urine 6183762008 46340 R82.998 Past pregn rachid history of cholestasis in 0538338715 7066515 Z87.59 High risk 4720 0007 O09.93 1. IUP FWB reassuring by + FHT noted on BSUS. Aneuploidy screening: ASK about UNITY with 28 wk labs. Anatomy Scan: Complete with MFM on 04/19/23.2. A-/RI/NRx4 . Last Pap: GTT: Pending; drawn on 05/30/23. GBS:3. Rh Neg - will need Rhogam at 28 wks. Rhogam ordered given on 05/30/23.4 . H/O Cholestasi s - had with G1; delivered at 37 wks. Pt states pruritis started a few days ago; Calamine lotion not helping. Pt educated on OTC Benedryl PRN, and transition to Rx Hydroxyzin e PRN if no relief. Pt educated not to use concurrent ly. Bile salts and CMP added to 28 labs. Pt educated on FKC and when to notify HCP/go to ER. Further POC pending lab result review.5. Dark Urine - Noted in the past 24 hours on 05/30/23. Pt self admittedly doesn't drink enough water daily, but has been drinking more since color change. Pt denies dysuria, n/v, back pain, or fever. UA dip6. Pt educated on TDAP, Flu, & COVID vaccinatio n education on 05/30/23.7 . Delivery Plans: Planning delivery at [facility].8. PP Contracept ion Plans: Follow up in 2 weeks. [id number] Rafael Hedrick MD [facility] [address] [place] [address] 06/17/2023 08:59:01 06/17/2023 10:28:35 Routine care 859202407 Z34.83 IUP @ 31+ wks. No OB complaints . RTO 2 wks. Gestation period, 31 weeks 78338997 Z3A.31 Cholestasi s of 771461267 O26.925 [id number] PEDRO LUIS POLLARDINICK, DO [facility] [address] [place] [address] 06/20/2023 13:52:06 06/20/2023 17:29:11 Gestation period, 31 weeks 10511310 Z3A.31 High risk 4720 0007 O09.93 Cholestasi s of 222904663 O26.643 nst: reactive [id number] Rafael Hedrick MD [facility] [address] [place] [address] 06/24/2023 12:16:41 06/24/2023 16:40:32 Gestation period, 32 weeks 4843003 Z3A.32 Cholestasi s of 196147324 O26.677 [id number] Rafael Bird, DO [facility] [address] [place] [address] 06/27/2023 10:56:59 06/28/2023 14:37:10 Gestation period, 32 weeks 6555659 Z3A.32 Routine an tenatal care 561069962 Z34.01 Z34.81 O09.511 O09.521 Cholestasi s of 228652180 O26.288 [id number] Rafael Hedrick MD [facility] [address] [place] [address] 06/29/2023 14:55:06 07/04/2023 09:57:09 Gestation period, 32 weeks 5219709 Z3A.32 Routine an tenatal care 473651501 Z34.01 Z34.81 O09.511 O09.521 IUP @ 31+ wks. No OB complaints . RTO 2 wks. Cholestasi s of 119702554 O26.643 next week [id number] Rafael Bird DO [facility] [address] [place] [address] 07/05/2023 09:53:19 07/06/2023 12:22:20 Routine care 664296035 Z34.01 Z34.81 O09.511 O09.521 Cholestasi s of 406213936 O26.643 Gestation period, 33 weeks 42260057 Z3A.33 [id number] Rafael Hedrick MD [facility] [address] [place] [address] 07/08/2023 09:49:12 07/08/2023 14:23:40 Cholestasis of 030092239 O26.643 next week [id number] Nikki Fonseca MD [facility] [address] [place] [address] 07/12/2023 16:41:05 07/12/2023 20:38:14 Supervision of high risk for multigravida done 0204926788 9109 O09.893 high risk due to cholestasi s Gestation period, 34 weeks 87738186 Z3A.34 Past pregn rachid history of cholestasis in 0346789026 0649020 Z87.59 discussed symptoms and stable levels of bile acids with last levels done 07/08.cont inue Ursodiol and testing. Benadryl or hydroxyzin e for itchingBPP 04/26 today [id number] [facility] [address] [place] [address] 07/15/2023 11:08:04 07/17/2023 11:20:57 High risk 99410148 O09.93 1. IUP FWB reassuring by BPP 02/22 in office today. Aneuploidy screening: Declined UNITY testing. Anatomy Scan: Complete with MFM on 04/19/23.2. A-/RI/NRx4 . Last Pap: None on file; plan post collection . GTT: 128. GBS:3. Rh Neg - will need Rhogam at 28 wks. Rhogam ordered given on 05/30/23.4 . Cholestasi s - had with G1; delivered at 37 wks. Return sx began with current in 05/2023. On Ursodiol & Hydroxyzin e. Weekly CMP & bile salts being drawn. Last results: 07/08 bile salts 6, CMP 06/27 AST/ALT 20. Plan for twice weekly testing NST Mon/ & BPP Th/Fri. Serial Growth U/S. U/S: 04/19 46%, 06/27 48.8%--> Update 07/15/23: BPP 02/22. Pt denies refills of medication s. Repeat CMP & bile salts ordered. Pt educated on [facility]KC and when to notify HCP/go to L&D. Planned IOL on 07/28/23. Pt advised to see delivery HCP for remainder of . 5. Dark Urine - Noted in the past 24 hours on 05/30/23. Pt self admittedly doesn't drink enough water daily, but has been drinking more since color change. Pt denies dysuria, n/v, back pain, or fever. --> Update 07/15/23: Urine cx X 2 in contaminat ed. Pt denies any back pain, n/v, fever, malaise, dysuria, frequency etc. Minimal improvemen t in color of urine. Reviewed 64 oz of water daily minimum and discussed when to notify HCP/go to ER.6. Pt educated on TDAP, Flu, & COVID vaccinatio n education on 05/30/23. RSV vaccinatio n education on 07/15/23.7 . Delivery Plans: Planning delivery at [facility]. Planned IOL on 07/28/23.8. PP Contracept ion Plans: Follow up in 4 days. screening 0093 76179 Z36.9 Dark-brown colored urine 3493793933 55551 R82.998 Cholestasi s of 654535433 O26.086 [id number] PEDRO LUISPAVEL SHEIKH DO [facility] [address] [place] [address] 07/20/2023 11:11:10 07/20/2023 18:49:20 Cholestasis of 824393787 O26.643 BPP: 04/26 Gestation period, 36 weeks 84879702 Z3A.36 High risk 4720 0007 O09.93 Routine an tenatal care 255735228 Z34.83 IUP @ 36+ wks. US: No OB complaints . GBS and CBC today. PTL precaution s. RTO 1 wk Acute uppe r respiratory infection 56982209 J06.9 [id number] Yuliya Fortune is, [address] [address] 07/22/2023 12:10:22 07/22/2023 16:12:33 Past history of cholestasis in 2791864379 0952408 Z87.59 Gestation period, 36 weeks 72523264 Z3A.36 Routine an tenatal care 088093999 Z34.83 Hemorrhoid s in 509612803 O22.43 [id number] Moraima Jason, [place] [address] [place] [address] 07/25/2023 13:49:56 07/25/2023 16:59:39 Gestation period, 36 weeks 42072278 Z3A.36 Past pregn rachid history of cholestasis in 2783275872 6397384 Z87.59 Routine an tenatal care 370290444 Z34.83 Hemorrhoid s in 139677350 O22.43 Wheezing 76513345 R06.2 [id number] Yuliya AvalosMarcia is, [place] [address] [place] [address] 08/18/2023 10:41:05 08/18/2023 17:00:29 61787215 Z33.1 Postoperative visit 1836 34847 Z09 state 2702164 1 Z39.2 EPDS 0Mood good, has good supportVB and pain controlled [id number] Rafael Bird, DO [facility] h [address] [place] [address] 09/12/2023 17:08:50 09/16/2023 16:54:27 state 99251548 Z39.2 Pt is doing well.Discu ssed control options in detail. Depression screening 171 565590 Z13.31 See Screening Section for EPDS Questionna latoya Result Health Concerns Section Related Observation LastModified by Organization Detai ls LastModified Time None Recorded Concern Status LastModified by Organization Details LastModified Time None Recorded Advance Directives Directive None Recorded Payers Insurance Date Sequence Insurance Name Policy Number Policy Farmer Covered Member ID Farmer Member ID Guarantor Name 06/29/2023 2 [employer] Cathi Demetrio [id number] [facility] Demetrio 06/29/2023 1 [place] [id number] [facility] Demetrio [id number] [facility] Demetrio 06/29/2023 1 [facility] [id number] [facility] Demetrio 06/29/2023 2 [employer] [facility] Demetrio [id number] [facility] Demetrio 06/29/2023 1 [facility] (PPO) [facility] Demetrio [id number] [facility] Demetrio 09/16/2023 1 Health system Demetrio [id number] [facility] Demetrio Notes Date Note Type Note Provider Name and Address Organization Details Recorded Time 07/20/2023 text/html Patient is here today for a routine OB visit. She is currently at 36 weeks gestation. vitamins: yes She has felt movement. She denies any complaints of the presence of vaginal bleed, leaking fluid, abdominal cramps, nausea, vomiting, headache or visual disturbances. PEDRO LUIS SHEIKH DO [address] [facility], [place], [address], [facility] [employer] [facility] IV 07/20/2023 12:43:16 07/25/2023 text/html Cathi 28 y/o F is here today for a routine OB visit. She is currently at 36.5 weeks gestation. vitamins: yes She has felt movement. She denies any complaints of the presence of vaginal bleed, leaking fluid, abdominal cramps, nausea, vomiting, headache or visual disturbances. Moraima Jason, [facility] [address] [place], [address], [employer] IV 07/25/2023 14:45:37 08/18/2023 text/html VisitReported bypatient.Onset/Abdon ing:date of delivery: (07/30/23) Quality: Context:complicatio ns of : none; complications of labor: none; feeding choice: breast and bottle Cathi is here for her 2 week Yuliya Bailey, [address], [address], [facility] [employer] IV 08/18/2023 11:15:30 09/12/2023 text/html VisitReported bypatient.Onset/Abdon ing:date of delivery: (07/30/2023) Quality: Context:feeding choice: breast Associated Symptoms:no abnormal bleeding; no vaginal discharge; no pelvic pain; laceration well healed; no constipation; no fecal incontinence; no dysuria; no urinary incontinence; no fever; no problems; no mastitis; normal moodNotes:Pt is doing well. She denies any bleeding. The patient verbally consented to documentation via virtual scribe for this encounter. Rafael Bird, [facility] [place], [address], [employer] IV 09/14/2023 22:51:05 OBGyn Episode Ob Episode Information Episode Created Date Number of Fetuses Patient Bloodtype Patient rh Status Prepregnancy Weight lbs Domestic Partner Domestic Partner Phone Father Name Medicare Specialist Status 02/17/20 23 1 A Negative CLOSED Fetus Data First Name Last Name Admitted to NICU Weight (g) Sex Living Outcome Pediatric Complications Fetus ID Race Codes Race Delivery Type jeaneth false 3175.14 4 M true Full Term [id number] Problems Problem Notes Delivery Plans: Planning [facility] at [facility]. Planned IOL on 07/28/23. Problem Name Start Date End Date Resolution Snomed Code Not e High risk 10051242 A-/RI/NRx4. Last Pap: None on file; plan post collection. GTT: 128. GBS: Aneuploidy screening: Declined UNITY testing. Anatomy Scan: Complete with MFM on 04/19/23. Dark-brown colored urine [id number] Noted in the past 24 hours on 05/30/23. Pt self admittedly doesn't drink enough water daily, but has been drinking more since color change. Pt denies dysuria, n/v, back pain, or fever. --> Update 07/15/23: Urine cx X 2 in contaminated. Pt denies any back pain, n/v, fever, malaise, dysuria, frequency etc. Minimal improvement in color of urine. Reviewed 64 oz of water daily minimum and discussed when to notify HCP/go to ER. Cholestasis [id number] had with G1; delivered at 37 wks. Return sx began with current in 05/2023. On Ursodiol & Hydroxyzine. Weekly CMP & bile salts being drawn. Last results: 07/08 bile salts 6, CMP 06/27 AST/ALT 20. Plan for twice weekly testing NST Mon/Tues & BPP Th/Fri. Serial Growth U/S. U/S: 04/19 46%, 06/27 48.8%--> Update 07/15/23: BPP 8/8. Pt denies refills of medications. Repeat CMP & bile salts ordered. Pt educated on [facility] and when to notify HCP/go to L&D. Planned IOL on 07/28/23. Pt advised to see delivery HCP for remainder of . RhD negative [id number] will ne ed Rhogam at 28 wks. Rhogam ordered given on 05/30/23. Shaquille Calculation Initial Shaquille Date Initial Exam Date Initial Exam Provider Initial Ultrasound Date Last Menstrual Period Date Ultra Sound Weeks Gestation 08/17/2023 02/16/2023 01/12/2023 11/10/2022 9 Eighteen To Twenty Week Shaquille Update Ultra Sound Date Fundal Height At Umbil Quickening Date Ultra Sound Latest Weeks Gestation Final Shaquille Confirmed By Final Shaquille Confirmed Date Final Shaquille Date Ultra Sound Latest Days Gestation 0 08/17/19 24 0 Pre-zachery Flowsheet Flowsheet Date 02/17/2023 Rosenbaum Score Blood Edema Fundus Height Fundus Units Glucose Ketones Leukocytes Nitrite Labor Signs Protein Cervic Dilation Cervic Effacement Cervic Station Type Weight in lbs Pre/Post Dialysis Refused With clothes 158.146766858911 BP Diastolic BP Location Tested BP Systolic BP Type 60 L arm 100 sitting Fetus Heart Rate Present A 140 Fetus Movement Comments Flowsheet Date 03/17/2023 Rosenbaum Score Blood Edema Fundus Height Fundus Units Glucose Ketones Leukocytes Nitrite Labor Signs Protein Cervic Dilation Cervic Effacement Cervic Station Type Weight in lbs Pre/Post Dialysis Refused Weight 158.540642309637 BP Diastolic BP Location Tested BP Systolic BP Type 62 110 Fetus Heart Rate Present A 145 Fetus Movement A Yes Comments Flowsheet Date 04/20/2023 Rosenbaum Score Blood Edema Fundus Height Fundus Units Glucose Ketones Leukocytes Nitrite Labor Signs Protein Cervic Dilation Cervic Effacement Cervic Station none neg Type Weight in lbs Pre/Post Dialysis Refused With clothes 162.39119046773 BP Diastolic BP Location Tested BP Systolic BP Type 64 L arm 112 sitting Fetus Heart Rate Present A 150 Fetus Movement Comments no ob complaints. rto in 4 w eeks Flowsheet Date 05/30/2023 Rosenbaum Score Blood Edema Fundus Height Fundus Units Glucose Ketones Leukocytes Nitrite Labor Signs Protein Cervic Dilation Cervic Effacement Cervic Station none 29 cm none Other (see comments ) trace Type Weight in lbs Pre/Post Dialysis Refused With clothes 162.305043953967 BP Diastolic BP Location Tested BP Systolic BP Type 66 R arm 118 sitting Fetus Heart Rate Present A 133 Fetus Movement A Yes Comments See Visit Plan/ Above Proble m List Flowsheet Date 06/17/2023 Rosenbaum Score Blood Edema Fundus Height Fundus Units Glucose Ketones Leukocytes Nitrite Labor Signs Protein Cervic Dilation Cervic Effacement Cervic Station Type Weight in lbs Pre/Post Dialysis Refused With clothes 167.951163018925 BP Diastolic BP Location Tested BP Systolic BP Type 60 115 sitting Fetus Heart Rate Present Fetus Movement Comments Flowsheet Date 06/20/2023 Rosenbaum Score Blood Edema Fundus Height Fundus Units Glucose Ketones Leukocytes Nitrite Labor Signs Protein Cervic Dilation Cervic Effacement Cervic Station Type Weight in lbs Pre/Post Dialysis Refused With clothes 169.302139187724 BP Diastolic BP Location Tested BP Systolic BP Type 64 110 sitting Fetus Heart Rate Present A 130 Fetus Movement Comments reactive nst. Flowsheet Date 06/24/2023 Rosenbaum Score Blood Edema Fundus Height Fundus Units Glucose Ketones Leukocytes Nitrite Labor Signs Protein Cervic Dilation Cervic Effacement Cervic Station trace Type Weight in lbs Pre/Post Dialysis Refused With clothes 168.146449450959 BP Diastolic BP Location Tested BP Systolic BP Type 60 112 sitting Fetus Heart Rate Present A 150 Fetus Movement A Yes Comments reactive and growth 06-27-23 Flowsheet Date 06/27/2023 Rosenbaum Score Blood Edema Fundus Height Fundus Units Glucose Ketones Leukocytes Nitrite Labor Signs Protein Cervic Dilation Cervic Effacement Cervic Station Type Weight in lbs Pre/Post Dialysis Refused With clothes 164.33312140425 BP Diastolic BP Location Tested BP Systolic BP Type 62 114 sitting Fetus Heart Rate Present A 140 Present Fetus Movement A Yes Comments Flowsheet Date 06/29/2023 Rosenbaum Score Blood Edema Fundus Height Fundus Units Glucose Ketones Leukocytes Nitrite Labor Signs Protein Cervic Dilation Cervic Effacement Cervic Station trace Type Weight in lbs Pre/Post Dialysis Refused With clothes 168.117121859151 BP Diastolic BP Location Tested BP Systolic BP Type 68 100 Fetus Heart Rate Present A 130 Fetus Movement A Yes Comments doing well and cmp and bile acids on 06-27-23 Flowsheet Date 07/05/2023 Rosenbaum Score Blood Edema Fundus Height Fundus Units Glucose Ketones Leukocytes Nitrite Labor Signs Protein Cervic Dilation Cervic Effacement Cervic Station Type Weight in lbs Pre/Post Dialysis Refused Weight 168.401858135487 BP Diastolic BP Location Tested BP Systolic BP Type 68 118 Fetus Heart Rate Present A 140 Present Fetus Movement A Yes Comments Good movement/adequate fluid . Flowsheet Date 07/08/2023 Rosenbaum Score Blood Edema Fundus Height Fundus Units Glucose Ketones Leukocytes Nitrite Labor Signs Protein Cervic Dilation Cervic Effacement Cervic Station none neg Type Weight in lbs Pre/Post Dialysis Refused Weight 170.345927601832 BP Diastolic BP Location Tested BP Systolic BP Type 70 122 sitting Fetus Heart Rate Present Fetus Movement Comments Flowsheet Date 07/12/2023 Rosenbaum Score Blood Edema Fundus Height Fundus Units Glucose Ketones Leukocytes Nitrite Labor Signs Protein Cervic Dilation Cervic Effacement Cervic Station none none none trace Type Weight in lbs Pre/Post Dialysis Refused Weight 169.723957013949 BP Diastolic BP Location Tested BP Systolic BP Type 62 110 Fetus Heart Rate Present A 140 Present Fetus Movement A Yes Comments 34.6 wks: being followed for suspected cholestasis. On Ursodiol. Bile acid level 6 on 07/08. NST reactive, BPP 10/10has follow up appts twice weekly Flowsheet Date 07/15/2023 Rosenbaum Score Blood Edema Fundus Height Fundus Units Glucose Ketones Leukocytes Nitrite Labor Signs Protein Cervic Dilation Cervic Effacement Cervic Station none Other (see comments ) Type Weight in lbs Pre/Post Dialysis Refused Weight 169.364377809421 BP Diastolic BP Location Tested BP Systolic BP Type 62 R arm 120 sitting Fetus Heart Rate Present A 152 Present Fetus Movement A Yes Comments See Visit Plan/Above Problem List. Flowsheet Date 07/20/2023 Rosenbaum Score Blood Edema Fundus Height Fundus Units Glucose Ketones Leukocytes Nitrite Labor Signs Protein Cervic Dilation Cervic Effacement Cervic Station Type Weight in lbs Pre/Post Dialysis Refused With clothes 166.416589353218 BP Diastolic BP Location Tested BP Systolic BP Type 64 118 sitting Fetus Heart Rate Present A 120 Fetus Movement A Yes Comments BPP: collected to day. has had lingering cough following URI, medrol dose pack sent in. Flowsheet Date 07/22/2023 Rosenbaum Score Blood Edema Fundus Height Fundus Units Glucose Ketones Leukocytes Nitrite Labor Signs Protein Cervic Dilation Cervic Effacement Cervic Station none Type Weight in lbs Pre/Post Dialysis Refused With clothes 166.927684331280 BP Diastolic BP Location Tested BP Systolic BP Type 62 110 sitting Fetus Heart Rate Present A 120 Fetus Movement A Yes Comments NST reactive today, hemorrho ids Rx lidocaine and proctofoam + colace sent Flowsheet Date 07/25/2023 Rosenbaum Score Blood Edema Fundus Height Fundus Units Glucose Ketones Leukocytes Nitrite Labor Signs Protein Cervic Dilation Cervic Effacement Cervic Station Type Weight in lbs Pre/Post Dialysis Refused BP Diastolic BP Location Tested BP Systolic BP Type Fetus Heart Rate Present A 130 Fetus Movement A Yes Comments NST reactive. Complains of c ontinued cough and wheezing. Inspiratory and expiratory wheezing noted all haney. Steroid inhaler/albuterol inhalers rx today. Recommended zyrtec and flonase. Instructed to go to ER for worsening symptoms. PTL/PIH precautions reviewed. Flowsheet Date 08/18/2023 Rosenbaum Score Blood Edema Fundus Height Fundus Units Glucose Ketones Leukocytes Nitrite Labor Signs Protein Cervic Dilation Cervic Effacement Cervic Station Type Weight in lbs Pre/Post Dialysis Refused With clothes 145.9804181536 BP Diastolic BP Location Tested BP Systolic BP Type 70 108 sitting Fetus Heart Rate Present Fetus Movement Comments Flowsheet Date 09/12/2023 Rosenbaum Score Blood Edema Fundus Height Fundus Units Glucose Ketones Leukocytes Nitrite Labor Signs Protein Cervic Dilation Cervic Effacement Cervic Station Type Weight in lbs Pre/Post Dialysis Refused Weight 153.156939675073 BP Diastolic BP Location Tested BP Systolic BP Type 70 100 Fetus Heart Rate Present Fetus Movement Comments Menstrual History Last Menstrual Date Menses Monthly On Bcp Conception Prior Menses Frequency Hcg Plus Date Menarche Onset Age 0411/10/2022 Delivery Information Delivery Date Delivery Type Labor Anesthesia Weeks Gestation Incision Type Labor Labor Length Hrs Delivered By Post Complications Tubal Sterilization Discharge Date Comments 4 Induce d Regional-Ep idural 37.3 Yuliya Victor CNM Discharge Information Feeding Method Contraceptive Method Maternal HG B and HCT Levels Breast Ob Episode Information Episode Created Date Number of Fetuses Patient Bloodtype Patient rh Status Prepregnancy Weight lbs Domestic Partner Domestic Partner Phone Father Name Medicare Specialist Status 07/15/20 23 1 CLOSED Fetus Data First Name Last Name Admitted to NICU Weight (g) Sex Living Outcome Pediatric Complications Fetus ID Race Codes Race Delivery Type 5273.00 7 F Prematur e [id number] Shaquille Calculation Initial Shaquille Date Initial Exam Date Initial Exam Provider Initial Ultrasound Date Last Menstrual Period Date Ultra Sound Weeks Gestation 0 Eighteen To Twenty Week Shaquille Update Ultra Sound Date Fundal Height At Umbil Quickening Date Ultra Sound Latest Weeks Gestation Final Shaquille Confirmed By Final Shaquille Confirmed Date Final Shaquille Date Ultra Sound Latest Days Gestation 0 0 Menstrual History Last Menstrual Date Menses Monthly On Bcp Conception Prior Menses Frequency Hcg Plus Date Menarche Onset Age Delivery Information Delivery Date Delivery Type Labor Anesthesia Weeks Gestation Incision Type Labor Labor Length Hrs Delivered By Post Complications Tubal Sterilization Discharge Date Comments 1 36.5 Discharge Information Feeding Method Contraceptive Method Maternal HG B and HCT Levels
--- OUTSIDE RECORDS SUMMARY | 2025-01-29 10:53 | XMS_ITS | Referral Summary ---
[facility] Address [address] [place] [address] Care Team Providers Care Pricing Specialist Name Role Phone No, Physician Primary Care Provider [phone] Allergies No known active allergies Medications hydrocortisone-pra [...] (08/11/2020): Added automatically from request for surgery [id number] Supervision of normal first , antepartum 07/25/2020 [...] Tdap 01/08/2021(Deferred: Other - received previously- 11/05/20),11/05/2020 Social History Tobacco Use Types Packs/Day Years Used Date Smoking Tobacco: Never Smokeless Tobacco: Never Alcohol Use Standard Drinks/Week Comments Not Currently 0 (1 standard drink = 0.6 oz pur e alcohol) AUDIT-C Answer Date Recorded Frequency of Alcohol Consumption Never 03/15/2019 Average Number of Drinks Not on file 019 Frequency of Binge Drinking Not on file 02/16 Dillon Depression Scale Answer Date Recorded Dillon Depression Scale Total 0 02/19/2021 The thought of harming myself has occurred to me . Never 02/19/2021 Personal Safety Answer Date Recorded Getting School Help Needed Not on file 09/17 Comments No Sex and Gender Information Value Date Recorded Sex Assigned at Not on file Legal Sex Female 3:32 PM CDT Gender Identity Not on file Sexual Orientation Not on file Last Filed Vital Signs Vital Sign Reading [...] 02/19/2021 11:17 AM CDT Plan of Treatment Not on file Procedures Procedure Name Priority Date/Time Associated Diagnosis Comments HEPATITIS C ANTIBODY Routine 06/23/2020 2:58 PM DIRECTOR INFORMATION SECURITY Positive test from Last 3 Months or Most Recently Relevant to Health Maintenance Results * Hepatitis C antibody (06/23/2020 2:58 PM DIRECTOR INFORMATION SECURITY) Hep C Ab NONREACT NONREACTIVE [facility] Comment: Siemens CentaurXP using ANDREW (chemiluminescent immunoassay) [...] Blood specimen (specimen) 06/23/2020 2:58 PM DIRECTOR INFORMATION SECURITY 06/23/2020 3:54 PM DIRECTOR INFORMATION SECURITY Narrative Resulting Agency Comment CLI us Edilberto Vences MD LAB MICROBIOLOGY - GENERAL ORDERABLES Final Result [facility] [address] [place] [address], [facility] [phone] from Last 3 Months or Most Recently Relevant to Health Maintenance Insurance [employer] [address] [employer] Address: [address] [place] [address] [employer] [address] [employer] Address: [address] [place] [address] Advance Directives For more information, please contact: [phone] * Full Code (Latest Code Status on File) Date Activated Date Inactivated Comments 01/06/2021 5:34 PM 01/08/2021 8:55 PM * Full Code Date Activated Date Inactivated Comments 01/04/2021 8:09 PM 01/06/2021 5:34 PM Full CPR in case of cardiopulmonary arrest Care Teams Pricing Specialist Relationship Specialty Start Date End Date No, Physician PCP - General 01/30/19
--- OUTSIDE RECORDS SUMMARY | 2025-01-29 10:54 | XMS_ITS | Clinical Summary ---
Author Organization [facility] Address [address] [place] [address] Care Team Providers Care Fish And Wildlife Biologist Name Role Phone Unavailable Primary Care Provider Unavailabl e Source Comments [facility],non-owned Affiliates and Associated Physician Practices is amultiple site organization consisting of ambulatory clinics and hospital sitesin [place], [place], [place] and [place]. This disclosure is being madepursuant to the Care Everywhere program and may not contain all information available regarding this patient. Last updated 18.[facility] [employer] Allergies No known active allergies Medications * Be aware that medications may not be up to date on this document. Alwaysverify current medications with the patient. Vit-Fe Fumarate-FA ( VITAMIN) 27-0.8 MG tablet Take 1 tablet by mouth once daily Active Social History Tobacco Use Types Packs/Day Years Used Date Smoking Tobacco: Never Smokeless Tobacco: Never Comments No Sex and Gender Information Value Date Recorded Sex Assigned at Not on file Legal Sex Female 10:45 AM CDT Gender Identity Not on file Sexual Orientation Not on file Last Filed Vital Signs Vital Sign Reading Time Taken Comments Blood Pressure 122/68 06/19/2020 6:41 PM CHARGE POSTER Pulse 117 06/19/2020 6:41 PM CHARGE POSTER Temperature 36.8 C (98.2 F) 06/19/2020 6:41 PM CHARGE POSTER Respiratory Rate 16 06/19/2020 6:41 PM CHARGE POSTER Oxygen Saturation 99% 06/19/2020 6:41 PM CHARGE POSTER Inhaled Oxygen Concentration - - Weight 68 kg (150 lb) 06/19/2020 6:41 PM CHARGE POSTER Height 157.5 cm (5' 2) 06/19/2020 6:41 PM CHARGE POSTER Body Mass Index 27.44 06/19/2020 6:41 PM CHARGE POSTER Plan of Treatment Health Maintenance Due Date Last Done Comments HIV SCREENING 2012 HEPATITIS C SCREENING 06/12/2015 DTAP/TDAP/TD VACCINES (1 - Tdap) 2016 HEPATITIS B VACCINE (1 of 3 - 19+ 3-dose series) 2016 PAP SMEAR 2018 COVID-19 VACCINE (3 - 2023-2 5 season) 2024 03/10/2021, 02/10/2021 HPV VACCINE (1 - 3-dose SCDM series) 2024 DEPRESSION SCREENING 07/18/2024 INFLUENZA VACCINE (#1) 2025 ZOSTER VACCINE (1 of 2) 2047 HIB VACCINE Aged Out No longer eligi ble based on patient's age to complete this topic MENINGOCOCCAL (Group B) VACCINE SHARED DECISION-MAKING Aged Out No longer eligible based on patient's age to complete this topic MENINGOCOCCAL GROUPS A/C/Y/W VACCINE Aged Out No longer eligible b ased on patient's age to complete this topic PNEUMOCOCCAL VACCINE Aged Out No long er eligible based on patient's age to complete this topic Insurance [facility]
[2025-01-29 11:00] LABS: Hematocrit 41.5 % (37.0-47.0); Hemoglobin 13.9 g/dL (12.0-15.0)
== END 2025-01-29 10:30 | disposition home or self-care (01) ==
LOC: ANHLAB 10:34
PROVIDERS: PCP Obstetrics & Gynecology; Visit Provider Obstetrics & Gynecology
DX: N93.9 Abnormal uterine and vaginal bleeding, unspecified (principal)
CPT/HCPCS: 36415; 85014; 85018